=== PATIENT | male | born 1975 | race Caucasian/White ===

== ENCOUNTER 2019-12-22 20:46 | Emergency (ER) | payer MEDICAID, SELFPAY ==
[2019-12-22 20:47] VITALS: BP 157/108; PULSE 104; RESP 18; TEMP 36; O2SAT 95; BMI 22.3
[2019-12-22 21:06] LABS: Bedside Glucose 120 mg/dL (70-110)
--- NOTE | 2019-12-22 21:17 | ED.DCSUM_ITS ---
History of Present Illness Chief Complaint: Head Injury Informant: Patient Occurred: Today Mechanism/Context: Lightheadedness, Near-syncope Narrative: Patient is a 44-year-old male with history of hepatitis and opioid dependency presenting after syncopal episode. Patient was with his brother when he stood up to look at something on the computer and then fell. Patient states he did not pass out but his legs could not support himself. Patient hit his head on the way down. He had no loss of consciousness. Patient states he is to follow depressed lately because he was laid off on his job. Denies any other complaints. He notes he has a history of syncope whenever he is too stressed out or dehydrated. Family was concerned that patient might be under the influence of something. Patient denies any alcohol or illicit drug use. He st ates his been clean for 8 years. Patient has any other complaints at this time. Tetanus Immunization: 5-10 years Past Medical History - Allergies and Home Meds Allergies/Adverse Reactions: Allergies No Known Allergies Allergy (Verified 10/20/17 09:11) Primary Care Physician: Stefano Tian MD [Primary Care Provider] - Past Medical History: - - History of opioid dependency and abuse, currently on Suboxone; history of hepatitis C status post treatment Surgical History: noncontributory Smoking Status: Current every day smoker Review of Systems General: Denies: Chills, Fever, Sweats Eyes: Denies: Visual changes - bilaterally, Diplopia ENT: Denies: Rhinorrhea, Sore throat Cardiovascular: Denies: Chest pain, Palpitations Respiratory: Denies: Dyspnea, Cough, Dyspnea on exertion Gastrointestinal: Denies: Abdominal pain, Nausea, Vomiting, Diarrhea, Melena, Hematochezia Genitourinary: Denies: Dysuria, Hematuria, Frequency Musculoskeletal: Denies: Back pain, Extremity Pain Skin: Reports: Wounds - right eyebrow. Denies: Rash Neurological: Denies: Headache, Weakness, Numbness Psych: Denies: Suicidal thoughts, Suicidal ideations Physical Exam Vital Signs/Narrative: Vital Signs Temp Pulse Resp BP Pulse Ox 12/22/19 20:47 96.8 F L 104 H 18 157/108 H 95 Inital Vital Signs reviewed: Yes General: Well nourished, Well developed Head: Normocephalic, Trauma - laceration right eyebrow Eyes: Perrl, EOMI, - - No nystagmus ENT: TM's clear, No hemotympanum or drainage, No trauma Neck: Nontender, Full ROM Cardiovascular: Regular rate, Regular rhythm, No murmurs Respiratory: No distress, CTA bilaterally, Chest nontender Abdomen: Soft, Nontender, Nondistended, Normal bowel sounds Back: Nontender Skin: Normal color, No rash, Trauma - 1.5 cm laceration, full thickness just above the lateral eyebrow. Slightly irregular but linear. No active bleeding Neurological: Alert, Oriented x3, Cranial nerves II-XII grossly intact, Normal Strength, Normal Sensation Psychological: Normal affect, Normal Mood Diagnostic/Tx/Re-eval Chest X-Ray - ED: 1 View, Read by ED Physician, Read by Radiologist, No Acute Disease Clinical Impression(s) from Imaging Studies Chest X-Ray 12/22/19 21:21 IMPRESSION: Normal. at 2158 Reported and signed by: Moreno Roche MD Electronically Signed: Moreno Roche MD at 21:57 EST Tel , Service support , Laboratory Data 12/22/19 21:01 POC Glucose 120 H - Medical Decision Making Patient is evaluated after fall at home and striking his head. Patient does have a laceration to his right eyebrow area. Laceration repairs performed. See procedure note. Tetanus is updated. I initially discussed with patient and ordered a syncope evaluation as patient had an episode of near syncope that caused him to fall. Patient initially was okay with it but then declined when nurses try to do the EKG and blood work. Patient is acting appropriately does have capacity to refuse. He has a normal neurologic exam. Patient also refused a head CT. Again I feel that patient has capacity to refuse this work-up at this time. Chest x-ray was normal. Patient be discharged home with instructions follow-up with a PCP. Will need sutures removed in about 5 days. Patient is counseled he can always return and have further evaluation of his syncopal episode/presyncopal episode if he chooses. Patient is counseled on signs and symptoms requiring return to the emergency room. Patient verbalizes agreement and understand this plan. Patient discharged home in stable and improved condition. Procedures - Lacerations No standard instances Length: 0.59 in Depth: Sub Q Shape: Linear Prep: Sterile Conditions, Chlorhexadine Laceration Repair: Lidocaine with epi Irrigated (ml): 150 Suture Information: Ethilon, Simple, 4-0 ED Disposition - Plan for ED Patient: Disposition: Home or Assisted Living Diagnosis: Fall, Laceration of forehead Instructions: LACERATION, All Referrals: Stefano Tian MD [Primary Care Provider] - Additional Instructions: Your sutures will need to be removed in 5 days. Return with signs of infection. If you choose to be evaluated further for what caused the cause we will happily evaluate you. Return the emergency room with any further concerns.
--- NOTE | 2019-12-22 21:21 | RAD_ITS ---
HISTORY: syncope, no chest complaints EXAM: XR Chest 1 View: COMPARISON: None FINDINGS: # of images incl. paperwork: 2 Lungs are clear. Heart is not enlarged. No acute osseous pathology perceived. Pulmonary vascularity is distinct. No effusions. RAD/Chest 1 View (Portable) IMPRESSION: Normal. at 2158 Reported and signed by: Moreno Roche MD Electronically Signed: Moreno Roche MD at 21:57 EST Tel , Service support ,
[2019-12-22] MEDS: Diphth,Pertuss(Acell),Tet Vac 0.5 ML Vial IM (21:43)
== END 2019-12-22 22:59 | disposition home or self-care (01) ==
PROVIDERS: Emergency Provider Emergency Medicine; PCP Family Medicine
DX: S01.81XA Laceration without foreign body of other part of head, initial encounter (principal); W19.XXXA Unspecified fall, initial encounter; Y93.89 Activity, other specified; Y92.009 Unspecified place in unspecified non-institutional (private) residence as the place of occurrence of the external cause; F17.200 Nicotine dependence, unspecified, uncomplicated
CPT/HCPCS: 12011; 71045; 82962; 90471; 90715; 99285; J7030; A4216

== ENCOUNTER 2020-07-31 16:00 | Emergency (ER) | payer MEDICAID, SELFPAY ==
[2020-07-31 16:06] VITALS: BP 161/100; PULSE 96; RESP 18; TEMP 36.4; O2SAT 98; BMI 22.9
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
--- NOTE | 2020-07-31 16:56 | ED.VISSUMM ---
- ER Visit Summary Date of Service: 07/31/20 Chief Complaint: Delusions and paranoid behavior History of Present Illness: The patient is a 45 M presenting with delusions and paranoid behavior. Patient currently is staying at [facility]. He is in medically assisted treatment with Suboxone. He has been intermittently using methamphetamine as well. He has been having delusions and psychosis. He believes everyone is out to get him. He believes people are monitoring him from his phone. He believes people are stealing his money. He denies suicidal or homicidal ideation. Physical Examination: Vitals are stable. Patient is afebrile. Alert no acute distress. HEENT exam is unremarkable. Neck is supple. No meningismus Lungs are clear and equal bilaterally. Heart is regular rate and rhythm. Extremities are unremarkable. Skin is warm and dry. No focal neurologic deficit. Denies suicidal or homicidal ideation. Flight of ideas. Paranoid thoughts Remainder of exam is unremarkable. Emergency Department Course and Treatment: CBC, chemistries unremarkable. Tox positive for amphetamine and methamphetamine. Alcohol negative. Patient is medically cleared in the ED and will be seen by the psychologist social. COVID test is negative. Disposition: Per social work Impression: Delusions, paranoid behavior This note was generated with [employer] dictation software. It may contain incorrect words, spelling, and punctuation that were not noted in review of the chart prior to signing ED Disposition - Plan for ED Patient: Referrals: Stefano Tian MD [Primary Care Provider] -
[2020-07-31 17:32] LABS: Absolute Neutrophil Count 6.2 X10^3/uL (2.0-7.7); Basophil# 0.06 X10^3/uL; Basophil% 0.6 % (0-1); Eosinophil# 0.19 X10^3/uL; Hematocrit 42.3 % (40-54); Hemoglobin 14.4 g/dL (13.0-16.5); Lymphocyte % 21.5 % (19-41); Mean Corpuscular Hgb 29.9 pg (27.0-32.0); Mean Corpuscular Volume 87.8 fL (80-94); Mean Platelet Vol. 11.2 fl (6.2-12.0); Monocyte# 0.79 X10^3/uL; Monocyte% 8.5 % (0-10); NRBC Flagged by Analyzer 0 % (0-5); Neutrophil # 6.23 X10^3/uL (2.7-7.7); Neutrophil % 67.1 % (47-70); Platelet Count 261 K/mm3 (150-450); RBC Distribution Width CV 11.9 % (11.6-14.6); RBC Distribution Width SD 38.2 fl (35.1-43.9); Red Blood Count 4.82 M/mm3 (4.6-6.2); White Blood Count 9.3 K/mm3 (4.4-11.0)
[2020-07-31 17:41] LABS: Anion Gap 6 (5-15); BUN 10 mg/dL (7-18); BUN/Creat Ratio 10.5 RATIO (10-20); Calcium,Total 9.1 mg/dL (8.5-10.1); Chloride 104 mmol/L (98-107); Creatinine, Serum 0.96 mg/dL (0.70-1.30); EST Glomerular Filtration Rate 91 mL/min (>60); Est Glom Filt Rate - Afr Amer 110 mL/min (>60); Estimated Creatinine Clearance 103.82 ml/min; Glucose 90 mg/dL (74-106); Potassium 3.5 mmol/L (3.5-5.1); Sodium Level 138 mmol/L (136-145)
[2020-07-31 17:56] LABS: Amphetamine Urine VISTA POSITIVE (<1000 ng/mL); Barbiturate Urine VISTA NEGATIVE (< 200 ng/mL); Benzodiazepine Urine VISTA NEGATIVE (< 200 ng/mL); Cocaine Urine VISTA NEGATIVE (< 300 ng/mL); Ecstacy Urine VISTA POSITIVE (< 500 ng/mL); Methadone Urine VISTA NEGATIVE (< 300 ng/mL); PCP Urine VISTA NEGATIVE (< 25 ng/mL); THC Urine VISTA NEGATIVE (< 50 ng/mL); Vista UDS pH Range 5
[2020-07-31 18:18] LABS: Alcohol, Blood (Medical)-Serum < 3.0 mg/dL
--- NOTE | 2020-07-31 18:47 | EKG12_ITS ---
Test Reason : [facility] [place] Blood Pressure : / mmHG Vent. Rate : 082 BPM Atrial Rate : 082 BPM P-R Int : 154 ms QRS Dur : 098 ms QT Int : 366 ms P-R-T Axes : 083 050 057 degrees QTc Int : 427 ms Normal sinus rhythm Normal ECG Confirmed by DAVID BELLA, VALERI ([id number]), proposal editor JUVENTINO WILSON ([id number]) on 08/03/2020 1:49:41 PM Referred By: Confirmed By:VALERI HERNANDEZ MD
[2020-07-31 19:00] VITALS: BP 160/97; PULSE 90; RESP 18; O2SAT 98
[2020-07-31 19:12] LABS: CPK Total, Creatine Kinase 337 U/L (39-308)
--- NOTE | 2020-07-31 19:16 | CM.ED ---
SOCIAL WORK Call from [facility] requesting CK level and EKG. Dr. Waller updated and added orders. Results then faxed to [facility] once received. Kt Pyle, PIPE LINE REPAIRER, APPAREL STOCK CHECKER
--- NOTE | 2020-07-31 19:32 | CM.ED ---
SOCIAL WORK Received call from [facility]. Patient accepted pending COVID-19 results. Worker states as long as patient is negative facility will be able to accept. Staff updated. Plan: [facility] Kt Pyle MSW, DATA STORAGE SPECIALIST
[2020-07-31 20:00] VITALS: RESP 18
--- NOTE | 2020-07-31 20:27 | CM.ED ---
SOCIAL WORK Patient accepted at [facility] by Dr. Keane. Patient to go to room 309B. Nurse to call report to . Boat Loader Helper to set up transport. Plan: [facility] Kt Pyle, SOLVENT PLANT OPERATOR, REELING OPERATOR
[2020-07-31 21:51] VITALS: BP 124/77; PULSE 68; RESP 15; O2SAT 99
== END 2020-07-31 21:52 ==
LOC: ED 16:39
PROVIDERS: Emergency Provider Emergency Medicine; PCP Family Medicine
DX: F22 Delusional disorders (principal); F23 Brief psychotic disorder; Z72.0 Tobacco use
CPT/HCPCS: 80048; 80307; 80320; 82550; 85025; 87635; 93005; 99284; C9803; G0480; U0003

== ENCOUNTER 2020-08-16 21:15 | Emergency (ER) | payer MEDICAID, SELFPAY ==
[2020-08-16 21:16] VITALS: BP 153/107; PULSE 81; RESP 15; TEMP 36.8; O2SAT 99; BMI 25.2
--- NOTE | 2020-08-16 21:37 | ED.VIS.GEN ---
History of Present Illness Chief Complaint: Lower Extremity Injury Narrative: Patient presents with bilateral knee pain. This is chronic, he normally takes ibuprofen and it goes away today that is worse than normal no recent trauma, no fever chills cough or congestion this is similar to his prior arthritis. Past Medical History - Allergies and Home Meds Allergies/Adverse Reactions: Allergies No Known Allergies Allergy (Verified 07/31/20 18:53) Primary Care Physician: Stefano Tian MD [Primary Care Provider] - Past Medical History: - - Schizophrenia, history of opiate abuse Surgical History: noncontributory Smoking Status: Current every day smoker Review of Systems All systems negative except as indicated General: Denies: Fever Gastrointestinal: Denies: Abdominal pain Musculoskeletal: Reports: Arthralgias Skin: Denies: Rash, Abscess Neurological: Denies: Weakness, Parasthesia Hematologic: Denies: Easy bruising, Easy bleeding Physical Exam Vital Signs/Narrative: Vital Signs Temp Pulse Resp BP Pulse Ox 08/16/20 21:16 98.3 F 81 15 153/107 H 99 General: Well nourished, Well developed ENT: Moist mucous membranes Cardiovascular: Regular rate Respiratory: No distress Abdomen: Soft, Nontender Back: Nontender, Normal Inspection Extremities: - - Patient has bilateral knee pain, it is diffuse. There is no erythema or Callard. Both knees are stable, no laxity on any of the stressors. Normal extensor mechanism on both of them. Neurological: Normal Strength, Normal Sensation Diagnostic/Tx/Re-eval - Medical Decision Making Patient will be treated with analgesia and prednisone in the ED. He will be given Naprosyn for home otherwise he appears well. ED Disposition - Plan for ED Patient: Disposition: Home or Assisted Living Diagnosis: Arthritis Instructions: ED Knee Pain UKO Prescriptions: Naproxen [Naprosyn] 500 mg PO BID PRN #20 tab Prescription Printed Referrals: Stefano Tian MD [Primary Care Provider] - 2 Days
[2020-08-16] MEDS: predniSONE 20 MG Tablet 40 MG PO (21:57)
[2020-08-16] MEDS: Ketorolac 30 MG/ML Syringe IM (21:57)
[2020-08-16 22:04] VITALS: PULSE 77; RESP 15; O2SAT 99
== END 2020-08-16 22:05 | disposition home or self-care (01) ==
LOC: ED 21:56
PROVIDERS: Emergency Provider Emergency Medicine; PCP Family Medicine
DX: M17.0 Bilateral primary osteoarthritis of knee (principal); F17.200 Nicotine dependence, unspecified, uncomplicated
CPT/HCPCS: 96372; 99284

== ENCOUNTER 2022-12-25 18:14 | Emergency (ER) | payer OTHER, MEDICAID, SELFPAY ==
[2022-12-25 18:16] VITALS: BP 104/67; PULSE 103; RESP 18; TEMP 35.8; O2SAT 93; BMI 24.4
--- NOTE | 2022-12-25 18:34 | EX.ED.DYSGE1 ---
HPI History of Present Illness Chief Complaint: Nausea/Vomiting Informant: patient Narrative Narrative: Nausea and vomiting since this morning. No hematemesis. He drank extensive mount alcohol yesterday. Denies diarrhea denies abdominal pain. Unable keep fluids down. No allergies. Typically does not drink much.Denies homicidal or suicidal ideations. [facility] Medical History (Updated 12/25/22 @ 20:[address] Abdiaziz Mujica DO) Opiate addiction Medical History no medical history Home Medications buprenorphine 4 mg-naloxone 1 mg sublingual film 1 ea SL DAILY 07/31/20 [History Last Taken Unknown] ondansetron 4 mg disintegrating tablet 4 mg PO Q8H PRN PRN Nausea #10 tabs 12/25/22 [Rx Last Taken Unknown] Allergy/AdvReac Type Severity Reaction Status Date / Time No Known Allergies Allergy Verified 12/25/22 18:19 Family History no significant family his Surgical History no surgical history Social History Smoking Status: Current every day smoker tobacco type: cigarettes ROS ROS ED Constitutional Constitutional ED: Denies chills, fever(s) or sweats Eyes Eyes: Denies change in vision ENT ENT ED: Denies dysphagia or sore throat Cardiovascular Cardiovascular: Denies chest pain, leg edema, palpitations or racing heartbeat Respiratory/Chest Respiratory/Chest: Denies cough, dyspnea or dyspnea on exertion Gastrointestinal Gastrointestinal: Reports nausea and vomiting; Denies abdominal pain or diarrhea Genitourinary Genitourinary ED: Denies dysuria, hematuria or urinary frequency Musculoskeletal Musculoskeletal: Denies back pain, extremity pain or neck pain Integumentary Denies rash or wounds Neurologic Neurologic: Denies headache(s), paresthesias or weakness EXAM Physical Exam Const Vital Signs: 12/25/22 18:16 12/25/22 19:13 Temperature 96.5 F L Temperature Source Temporal Pulse Rate 103 H 95 Respiratory Rate 18 15 Blood Pressure 104/67 142/84 H Blood Pressure Mean 79 103 Pulse Ox 93 99 Oxygen Delivery Method Room Air Room Air Positive well nourished and well developed General Appearance ED: well developed and NAD HEENT Reports dry mucous membranes normocephalic and atraumatic Mouth ED: Yes dry mucous membranes Mouth: dry mucous membranes Eyes PERRL, EOMs intact bilaterally and conjunctivae normal General Eye ED: Yes normal appearance of both eyes Neck no lymphadenopathy and supple General: Negative for tenderness Chest Wall Chest: Negative for tenderness Resp normal respiratory effort and normal air movement Effort and Inspection: symmetric chest movement; Negative for respiratory distress Cardio regular rhythm and no murmurs Rate: tachycardic Peripheral Pulses: pulses 2+ throughout GI normal to inspection, nondistended, normoactive bowel sounds and non-tender GI Narrative: Negative Saldivar's or McBurney's tenderness. Palpation: Negative for guarding or rebound tenderness present Back/Spine no CVA tenderness and no thoracic nor lumbar tenderness Extremity normal to inspection General Extremety ED: Negative for edema or tenderness General Extremity: Negative for edema Neuro oriented x3 and no sensory deficits noted Sensorium / Orientation: awake and alert Skin no rashes or lesions noted and no wounds MDM MDM MDM Narrative Medical decision making narrative: Interventions / MDM: Differential diagnosis:Nausea vomiting, gastritis, alcohol poisoning, CHRISTELLE, dehydration Diagnosis considered but do not suspect: No clinical concerns of cholecystitis or appendicitis with a nonsurgical abdomen. My EKG interpretation: N/A Imaging independently reviewed and interpreted by myself: N/A External documents reviewed: N/A Test considered but not ordered:N/A ED course: Clinical dehydration slight tachycardia. Nontoxic. Nonsurgical abdomen. IV established 2 L of fluids ordered to check electrolytes creatinine 1.22 slightly up from 0.9. BUN was 18. Given IV Zofran with improvement he is tolerating oral intake. Heart rate improved. Prescription of Zofran written. Additional Tylenol for slight headache symptoms. There is no meningismus. He is given follow-up as an outpatient. All questions were answered. Re-evaluation: stable And improved Disposition discussed with patient/family/significant other: Patient Case discussed with consulting clinician: N/A Lab Data Attestation: I reviewed the patient's lab results. Labs: Laboratory Results - last 24 hr 12/25/22 18:40 Sodium 143 Potassium 3.9 Chloride 108 H Carbon Dioxide 20.0 L Anion Gap 15 BUN 18 Creatinine 1.22 Estim Creat Clear Calc 80.58 Est GFR (MDRD) Af Amer 82 Est GFR (MDRD) Non-Af 68 BUN/Creatinine Ratio 14.8 Glucose 66 L Calcium 9.1 Discharge Plan Triage Chief Complaint: Nausea/Vomiting Other Complaint: ETOH Intox ED Provider: Abdiaziz Mujica Dx/Rx/DC Orders Clinical Impression: Nausea & vomiting, Alcohol use, Dehydration Instructions: ED Vomiting (Adult) Prescriptions: New ondansetron [ondansetron] 4 mg tablet,disintegrating 4 mg PO Q8H PRN PRN (Reason: Nausea) Qty: 10 0RF No Action buprenorphine-naloxone 1 EACH film 1 ea SL DAILY Primary Care Provider: Care Physician,No Primary Referrals: Ulices Monroe MD [Med Staff - Agriculture Manager] - 1-2 Weeks Care Physician,No Primary [Primary Care Provider] - Disposition Disposition: Home, Self Care
[2022-12-25] MEDS: 0.9% Normal Saline 1,000 ML 1000 ML IV ×2 (18:40→19:45)
[2022-12-25] MEDS: Ondansetron 4 MG/2 ML Vial IV (18:41)
[2022-12-25 18:57] LABS: Anion Gap 15 (5-15); BUN 18 mg/dL (7-18); BUN/Creat Ratio 14.8 RATIO (10-20); Calcium,Total 9.1 mg/dL (8.5-10.1); Chloride 108 mmol/L (98-107); Creatinine, Serum 1.22 mg/dL (0.70-1.30); EST Glomerular Filtration Rate 68 mL/min (>60); Est Glom Filt Rate - Afr Amer 82 mL/min (>60); Estimated Creatinine Clearance 80.58 ml/min; Glucose 66 mg/dL (74-106); Potassium 3.9 mmol/L (3.5-5.1); Sodium Level 143 mmol/L (136-145)
[2022-12-25 19:13] VITALS: BP 142/84; PULSE 95; RESP 15; O2SAT 99
[2022-12-25] MEDS: Acetaminophen 500 MG Tablet 1000 MG PO (20:34)
[2022-12-25 20:36] VITALS: BP 154/80; PULSE 99; RESP 15; O2SAT 98
== END 2022-12-25 21:15 | disposition home or self-care (01) ==
PROVIDERS: Emergency Provider Emergency Medicine; Visit Provider Emergency Medicine
DX: R11.2 Nausea with vomiting, unspecified (principal); E86.0 Dehydration; F17.210 Nicotine dependence, cigarettes, uncomplicated; F10.90 Alcohol use, unspecified, uncomplicated
CPT/HCPCS: 80048; 96361; 96374; 99283; J7030; J2405